=== PATIENT | male | born 1995 | race Caucasian/White ===

== ENCOUNTER 2017-10-03 09:10 | Emergency (ER) | payer OTHER ==
[~2017-10-03] VITALS: Ht 182.9 cm; Wt 79.2 kg
[2017-10-03 09:16] VITALS: Ht 182.9 cm; Wt 79.2 kg
--- NOTE | 2017-10-03 10:35 | DIAGNOSTIC IMAGING REPORT ---
L-SPINE MIN 4 VIEWS ROUTINE CLINICAL HISTORY: 21 years-old Male presenting with LBP. TECHNIQUE: Frontal, bilateral oblique, lateral, and coned in lateral views of the lumbar spine were obtained. COMPARISON: CT of abdomen pelvis from 10/16/2015. FINDINGS: No scoliosis. Normal lumbar lordosis. Vertebral bodies maintain normal height and alignment. Intervertebral disc spaces preserved. No significant degenerative change. No radiographic evidence of osseous neural foraminal narrowing. No compression deformity or subluxation. A radiodense object projects over the prevertebral region on lateral view but is not evident on the frontal view, possibly external to the patient. Moderate stool burden throughout the colon. No gross pneumoperitoneum. IMPRESSION: 1. Normal lumbar spine. No radiographic evidence of acute osseous injury. 2. Moderate stool burden consistent with constipation. 3. A radiodense object projects over the prevertebral region on lateral view but is not evident on the frontal view, possibly representing an external foreign body. Correlate clinically. Electronically signed by: Jeremie Fernandez M.D. 10/03/2017 10:34 AM Dictated Date/Time: 10/03/2017 10:29 AM
[2017-10-03 11:08] VITALS: BP 121/72; PULSE 42; TEMP 36.4; O2SAT 99
--- NOTE | 2017-10-03 16:02 | EMERGENCY ROOM VISIT NOTE ---
History First contact with patient: 09:24 Chief Complaint: BACK PAIN Stated Complaint: SHARP PAIN IN LOWER BACK History of Present Illness The patient is a 21 year old male who presents to the Emergency Room with complaints of lower back pain. The patient reports that he has had this discomfort now for between 8-12 months. The patient denies any known trauma to the back. The patient does work out extensively. 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 The patient has not followed up with anyone regarding his symptoms. The patient denies any prior history of chronic back pain. He currently denies any paresthesias or numbness of the torso or lower extremities. He denies any bladder or bowel incontinence , saddle anesthesias or leg weakness. He currently rates his discomfort a 6 out of 10. Review of Systems 10 system review was performed and was negative except for pertinent positives and negatives as indicated in history of present illness Past Medical/Surgical History Medical Problems: (1) No significant past medical history Surgical Problems: (1) [place] teeth extracted Family History No significant family history Social History Smoking Status: Never Smoker Alcohol Use: none Marital Status: single Housing Status: lives with roommate Occupation Status: [employer] Current/Historical Medications No Active Prescriptions or Reported Meds Physical Exam Vital Signs Date Time Temp Pulse Resp B/P (MAP) Pulse Ox O2 Delivery O2 Flow Rate FiO2 10/03/17 11:08 36.4 42 18 121/72 99 18 09:16 36.4 48 20 119/63 99 Room Air Physical Exam CONSTITUTIONAL: Healthy and well nourished. Alert and oriented X 3 with positive affect. Patient does not appear in any acute distress. HEENT: Normocephalic, atraumatic. Pupils equal, round and reactive. NECK: Full active range of motion without discomfort. RESPIRATORY: Clear to auscultation bilaterally with no wheezing, crackles, rhonchi or stridor. CARDIOVASCULAR: Regular rate and rhythm with no murmurs, rubs or gallops. GASTROINTESTINAL: Bowel sounds present in all quadrants. Soft and nontender to palpation. MUSCULOSKELETAL: Patient has mild discomfort with any flexion of the back. Otherwise he has good extension, lateral bending and rotation without significant discomfort. He does not have any focal findings to the central lumbar spine or paraspinous muscles. INTEGUMENTARY: No rash or other significant dermatologic conditions noted. NEUROLOGIC: No focal neurologic deficits noted. Lower extremities are sensory intact. Medical Decision & Procedures ER Provider Diagnostic Interpretation: My interpretation of lumbar spine x-rays does not show any acute or chronic findings. Radiologist report is as follows: L-SPINE MIN 4 VIEWS ROUTINE CLINICAL HISTORY: 21 years-old Male presenting with LBP. TECHNIQUE: Frontal, bilateral oblique, lateral, and coned in lateral views of the lumbar spine were obtained. COMPARISON: CT of abdomen pelvis from 10/16/2015. FINDINGS: No scoliosis. Normal lumbar lordosis. Vertebral bodies maintain normal height and alignment. Intervertebral disc spaces preserved. No significant degenerative change. No radiographic evidence of osseous neural foraminal narrowing. No compression deformity or subluxation. A radiodense object projects over the prevertebral region on lateral view but is not evident on the frontal view, possibly external to the patient. Moderate stool burden throughout the colon. No gross pneumoperitoneum. IMPRESSION: 1. Normal lumbar spine. No radiographic evidence of acute osseous injury. 2. Moderate stool burden consistent with constipation. 3. A radiodense object projects over the prevertebral region on lateral view ED Course Patient history and physical exam were performed. Nurse's notes were reviewed. Vital signs were reviewed and were normal. The patient does not appear in any acute distress. X-rays of the lumbar spine were normal. The patient was encouraged to take ibuprofen or Tylenol as needed for pain. Because the patient will be going into basic training soon, I did suggest that he follow-up with orthopedics to discuss further treatment, management and possible physical therapy. The patient was happy with plan of care, voice understanding of all discharge instructions, and denied any significant discomfort at the time of discharge. Medical Decision Medication Reconcilliation Current Medication List: was personally reviewed by me Blood Pressure Screening Patient's blood pressure: Normal blood pressure Impression Primary Impression: Strain of lumbar region Departure Information Dispostion Home / Self-Care Prescriptions No Active Prescriptions or Reported Meds Referrals No Doctor, Assigned (PCP) Huber Monroy M.D. Oneal Bell M.D. Sherbondy, Paul S., M.D. Forms HOME CARE DOCUMENTATION FORM, IMPORTANT VISIT INFORMATION Patient Instructions My [facility], ED Low Back Pain Injury Additional Instructions Intermittently apply heat to back as needed. Ibuprofen 800 mg and/or Tylenol 1000 mg every 8 hours. You may also alternate these medications for more effective pain relief: Ibuprofen --4 HRS--> Tylenol --4 HRS--> ibuprofen --4 HRS--> Tylenol .... Suggest follow-up with orthopedics for further reevaluation and possible physical therapy referral. [facility] (Dr. Bell) [facility] (Dr. Monroy) [facility] (Dr. Avila) Problem Qualifiers Primary Impression: Strain of lumbar region Encounter type: initial encounter Qualified Codes: S39.012A - Strain of muscle, fascia and tendon of lower back, initial encounter
== END 2017-10-03 11:09 | disposition home or self-care (01) ==
LOC: C.EDB 09:12 → C.EDC 11:09
DX: S39.012A Strain of muscle, fascia and tendon of lower back, initial encounter (principal); X58.XXXA Exposure to other specified factors, initial encounter